=== PATIENT | female | born 1980 | race Hispanic/Latino ===

== ENCOUNTER 2018-10-19 18:26 | Emergency (ER) | payer MEDICAID, OTHER | END 2018-10-19 18:45 | disposition home or self-care (01) | LOC: EDH 18:26 | DX: B35.3 Tinea pedis (principal); Z88.0 Allergy status to penicillin; Z72.0 Tobacco use ==

== ENCOUNTER 2018-10-27 14:29 | Emergency (ER) | payer OTHER | END 2018-10-27 14:54 | disposition home or self-care (01) | LOC: EDH 14:29 | DX: L24.89 Irritant contact dermatitis due to other agents (principal); Z88.0 Allergy status to penicillin | CPT/HCPCS: 99281 ==